=== PATIENT | male | born 1995 | race Caucasian/White ===

== ENCOUNTER 2018-12-22 16:56 | Emergency (ER) | payer OTHER ==
[~2018-12-22] VITALS: Ht 180.3 cm; Wt 73.7 kg
[~2018-12-22 16:56] MED LIST: DICY10CA40 PO; DOCU-144 PO; DOXY100T20 PO; ONDA4TAB14 PO
[2018-12-22 16:58] VITALS: BP 155/81; PULSE 70; RESP 16; Ht 180.3 cm; Wt 73.7 kg
--- NOTE | 2018-12-22 17:28 | ERD ---
ER Documentation Chief Complaint Chief Complaint Pt reports he was bit by a bug yesterday HPI 23-year-old male, presents to the emergency department, complaining of a tick bite that occurred yesterday. According to the patient, did take was completely extracted with tweezers. He denies any rashes, he is requesting a prescription for antibiotics. ROS All systems reviewed and are negative except as per history of present illness. Medications Home Meds Active Scripts Doxycycline Hyclate* (Doxycycline Hyclate*) 100 Mg Tablet.dr, 100 MG PO BID for 5 Days, TAB Prov:HENRY BHARDWAJ MD 12/22/18 Dicyclomine HCl (Dicyclomine HCl) 10 Mg Capsule, 10 MG PO QID, #20 CAP Prov:TIFFANIE MONTOYA 01/22/16 Ondansetron (Ondansetron Odt) 4 Mg Tab.rapdis, 4 MG PO Q6H PRN for NAUSEA AND/OR VOMITING, #10 TAB Prov:TIFFANIE MONTOYA 01/22/16 Docusate Sodium* (Colace*) 100 Mg Capsule, 100 MG PO TID, #10 CAP Prov:TIFFANIE MONTOYA 01/22/16 Allergies Allergies: Coded Allergies: No Known Drug Allergies (Verified Allergy, Mild, 01/22/16) PMhx/Soc History of Surgery: No Hx Neurological Disorder: No Hx Respiratory Disorders: No Hx Cardiac Disorders: No Hx Psychiatric Problems: No Hx Miscellaneous Medical Probl: No Hx Alcohol Use: No Hx Substance Use: Yes (marijuana weekly) Hx Tobacco Use: No FmHx Family History: No diabetes, No coronary disease Physical Exam Vitals Vital Signs Date Temp Pulse Resp B/P (MAP) Pulse Ox O2 O2 Flow FiO2 Time Delivery Rate 12/22/18 98.2 70 16 155/81 99 16:58 (105) Physical Exam Const: No acute distress Head: Atraumatic Eyes: Normal Conjunctiva ENT: Normal External Ears, Nose and Mouth. Neck: Full range of motion. No meningismus. Resp: Clear to auscultation bilaterally Cardio: Regular rate and rhythm, no murmurs Abd: Soft, non tender, non distended. Normal bowel sounds Skin: No petechiae or rashes Back: No midline or flank tenderness Ext: No cyanosis, or edema Neur: Awake and alert Psych: Normal Mood and Affect Procedures/MDM Vital signs stable, Differential diagnosis include but not limited to: Dermatitis, scabies, allergic reaction, cellulitis, erysipelas, shingles, abscess. Low suspicion for acute systemic infectious process. Physical examination and clinical presentation consistent most likely with tick bite without evidence of cellulitis or abscess formation. During the ED course the patient remained stable, no new complaints. Clinical impression discussed with mother who agrees with management. The patient is stable to be treated outpatient and will be discharged home. The patient was instructed to follow up with the primary care provider in the next 48h. If symptoms persist, worsen or new symptoms develop, then patient should return to the ED immediately. Instructions explained and given directly by me to the patient and relatives with acknowledgment and demonstrated understanding. Disclaimer: Inadvertent spelling and grammatical errors are likely due to EHR/dictation software use and do not reflect on the overall quality of patient care. Also, please note that the electronic time recorded on this note does not necessarily reflect the actual time of the patient encounter. Departure Diagnosis: Primary Impression: Tick bite of forearm Condition: Stable Additional Instructions: Thank you very much for allowing us to participate in your care. Your health and safety is our top priority at [facility]. The evaluation in the emergency department has been done to rule out an acute emergency. Chronic, [id number] conditions may have not been evaluated; therefore, you need to follow up with a primary care provider in the next 48h. If symptoms persist, worsen or new symptoms develop, then patient should return to the ED immediately. Call your primary care doctor TOMORROW for an appointment during the next 2-4 days and bring all the information provided. Have prescriptions filled and follow precisely the directions on the label. If the symptoms get worse and your provider is unavailable, return to the Emergency Department immediately. HENRY BHARDWAJ MD Dec 22, 2018 17:28
== END 2018-12-22 17:30 | disposition home or self-care (01) ==
LOC: E/R 16:56
DX: S50.869A Insect bite (nonvenomous) of unspecified forearm, initial encounter (principal); W57.XXXA Bitten or stung by nonvenomous insect and other nonvenomous arthropods, initial encounter; Y92.9 Unspecified place or not applicable
CPT/HCPCS: 99283

== ENCOUNTER 2019-01-14 08:34 | Emergency (ER) | payer OTHER ==
[~2019-01-14] VITALS: Ht 180.3 cm; Wt 75.7 kg
[~2019-01-14 08:34] MED LIST changes: +ERYT1OIN6 LEFT EYE; +IBUP-1542 PO
[2019-01-14 08:36] VITALS: BP 135/68; PULSE 78; RESP 18; Ht 180.3 cm; Wt 75.7 kg
[2019-01-14] MEDS ORDERED: FLUORESCEIN STRIP LEFT EYE ONE (10:00)
[2019-01-14] MEDS ORDERED: TETRACAINE 0.5% 4 ML OPH LEFT EYE ONE (10:00)
== END 2019-01-14 11:30 | disposition home or self-care (01) ==
LOC: FTE 08:34
DX: H57.9 Unspecified disorder of eye and adnexa (principal)
CPT/HCPCS: Z7502; Z7610; 99283